=== PATIENT | male | born 1935 | race Caucasian/White ===

== ENCOUNTER 2018-09-26 19:32 | Emergency (ER) | payer OTHER, BC ==
[~2018-09-26] VITALS: Ht 172.7 cm; Wt 108.9 kg
[2018-09-26] MEDS ORDERED: ELIQUIS5 MG (19:36)
[2018-09-26] MEDS ORDERED: METFORMIN HCL500 MG PO (19:36)
[2018-09-26] MEDS ORDERED: TRAMADOL 50 MG50 MG PO (19:37)
[2018-09-26] MEDS ORDERED: ASPIR 8181 M1 PO (19:37)
[2018-09-26 20:20] LABS: HEMOGLOBIN 11.5 gm/dL (14.0-18.0); WBC 10.7 thou/uL (4.0-11.0)
[2018-09-26 20:22] LABS: ABSOLUTE NEUTROPHILS 8.4 thou/uL (1.4-8.2); BASOPHILS 0.6 % (0.0-2.0); EOSINOPHILS 5.5 % (0.0-3.0); HEMATOCRIT 34.3 % (42.0-52.0); LYMPHOCYTES 7.2 % (24.0-44.0); MCH 30.7 pg (26.0-34.0); MCHC 33.4 g/dL (28.0-37.0); MCV 91.7 fL (80.0-100.0); MONOCYTES 8.3 % (1.0-8.0); PLATELET COUNT 264 thou/uL (150-400); POLYS 78.4 % (36.0-66.0); RBC 3.73 mil/uL (4.50-6.00); RDW 14.7 % (10.5-14.5)
[2018-09-26 20:27] LABS: ANION GAP 7 mmol/L (7-16); BUN 14 mg/dL (7-18); CALCIUM 8.6 mg/dL (8.5-10.1); CHLORIDE 102 mmol/L (98-107); CO2 27 mmol/L (21-32); GLUCOSE 142 mg/dL (74-106); POTASSIUM 4.9 mmol/L (3.5-5.1); SODIUM 136 mmol/L (136-145)
[2018-09-26 20:38] LABS: TROPONIN-I <0.06 ng/mL (<0.06)
[2018-09-26] MEDS ORDERED: MEDROLDOSEPACK PO (21:37)
[2018-09-26] MEDS ORDERED: TESSALON PERLE100 MG PO (21:37)
[2018-09-26 22:04] VITALS: BP 149/75
--- NOTE | 2018-09-27 10:08 | EKG ---
[place] [address] [facility] [employer] [place] [address] ELECTROCARDIOGRAM REPORT Name: MAIKEL SAVAGE Room #: DEP [facility]#: [id number] Admission: 09/26/18 Attend Phys: Discharge: 09/26/18 Date of : 39 Report #: [id number] THIS REPORT FOR: //name// [facility] ED Test Date: 2018-09-26 Test Time: 20:23:12 Pat Name: MAIKEL SAVAGE Department: Room: Gender: M Lead Teller: SUZANNE : 1935 Requested By: Aime Schuster Order Number: [id number] MD: Surya Vela Measurements Intervals [place] Rate: 64 P: CO: QRS: 17 QRSD: 82 T: 30 QT: 393 QTc: 406 Interpretive Statements Atrial fibrillation Low voltage, extremity and precordial leads Baseline wander in lead(s) V2 No previous ECG available for comparison Electronically Signed On 09-27-2018 10:08:48 [employer] by Surya Vela [email or web address] <ELECTRONICALLY SIGNED> By: Surya Vela MD, [facility] 09/27/18 1008 22 22 Surya Vela MD, FACC /EPI
== END 2018-09-26 22:04 | disposition home or self-care (01) ==
LOC: ER 19:32
PROVIDERS: Emergency Medicine
DX: J20.8 Acute bronchitis due to other specified organisms (principal); M54.12 Radiculopathy, cervical region; B97.89 Other viral agents as the cause of diseases classified elsewhere; Z88.0 Allergy status to penicillin; Z88.1 Allergy status to other antibiotic agents; Z88.2 Allergy status to sulfonamides; Z91.040 Latex allergy status